=== PATIENT | male | born 1955 | race Caucasian/White ===

== ENCOUNTER → 2022-05-24 | Outpatient (CLI) | payer OTHER ==
[~2022-05-24] MED LIST: CIPRO500 MG PO; GLIPIZIDE5 MG PO; IRON90 MG PO; JANUVIA100 MG PO; METFORMIN1000 MG PO
== END | disposition home or self-care (01) ==
LOC: US 15:30
PROVIDERS: ATTEND Internal Medicine Nephrology
DX: N20.0 Calculus of kidney (principal); N18.31 Chronic kidney disease, stage 3a